=== PATIENT | male | born 1955 ===

== ENCOUNTER 2019-01-25 05:49 | Inpatient (IN) | payer OTHER ==
[~2019-01-25] VITALS: Ht 162.6 cm; Wt 66.7 kg
[2019-01-25] VITALS (12 sets, daily range): BP systolic 13–152; BP diastolic 57–94
[2019-01-25] MEDS ORDERED: Rocuronium Bromide 50mg/5ml Inj IV ONE (06:18)
[2019-01-25] MEDS ORDERED: Vancomycin 1gm vial IVPB ONE (06:35)
[2019-01-25] MEDS ORDERED: FLOMAX0.4 MG ORAL (06:36)
[2019-01-25] MEDS ORDERED: Thrombin 5000 units TOPIC ONE (06:36)
[2019-01-25] MEDS ORDERED: LIPITOR40 MG ORAL (06:36)
[2019-01-25] MEDS ORDERED: GLUCOTROL10 MG ORAL (06:36)
[2019-01-25] MEDS ORDERED: Gelfoam Size TOPIC ONE (06:36)
[2019-01-25] MEDS ORDERED: Bacitracin 50000 Units Vial ONE (06:36)
[2019-01-25] MEDS ORDERED: GLUCOPHAGE850 MG ORAL (06:36)
[2019-01-25] MEDS ORDERED: ZESTRIL20 MG ORAL (06:36)
[2019-01-25] MEDS ORDERED: Bupivacaine w/Epi 0.5% 30ml Vial INJ ONE (06:36)
[2019-01-25] MEDS ORDERED: ASPIR 8181 MG ORAL (06:36)
[2019-01-25] MEDS ORDERED: fentaNYL 100 mcg/2 mL ONE (06:36)
[2019-01-25] MEDS ORDERED: NORVASC10 MG ORAL (06:36)
[2019-01-25] MEDS ORDERED: Ketamine 500mg Inj ONE (06:37)
[2019-01-25] MEDS ORDERED: LR 1000ml 1,000 ML IVLG SCH (06:39)
[2019-01-25] MEDS ORDERED: Sodium Chloride 10ml vial INJ ONE (06:40)
[2019-01-25] MEDS ORDERED: Lidocaine 1% MPF 10mg/ml 5ml ONE (06:40)
--- NOTE | 2019-01-25 06:44 | Immediate Post-Op Evaluation ---
Immediate Post-Op Evalulation Immediate Post-Op Evalulation Procedure: L L4-5, L5-S1 Microlaminectomy, Hemilaminotomy Date of Evaluation: Jan 25, 2019 Time of Evaluation: 09:15 IV Fluids: 600 LR Blood Products: 0 Estimated Blood Loss: 50 Urinary Output: 200 Blood Pressure Systolic: 99 Blood Pressure Diastolic: 61 Pulse Rate: 68 Respiratory Rate: 16 O2 Sat by Pulse Oximetry: 99 Temperature (Fahrenheit): 99 Pain Score (1-10): 2 Nausea: No Vomiting: No Complications 0 Patient Status: awake, reacts, patent, extubated, none Hydration Status: adequate Dru Grams Ancef IV Given Within 1 Hr of Incision: Yes Time Given: 07:16 Aakash Saba MD Jan 25, 2019 06:44
[2019-01-25] MEDS ORDERED: LORazepam Inj 2mg/ml 1ml IV PRN (06:45)
[2019-01-25] MEDS ORDERED: HYDROcodone/Acetamin 7.5/325 tab ORAL PRN ×2 (06:45→07:15)
[2019-01-25] MEDS ORDERED: fentaNYL 100 mcg/2 mL IV PRN (06:45)
[2019-01-25] MEDS ORDERED: Atropine Sulfate 0.4mg/ml inj IVP PRN (06:45)
[2019-01-25] MEDS ORDERED: DiphenhydrAMINE 50mg/ml Inj IVP PRN (06:45)
[2019-01-25] MEDS ORDERED: Ketorolac 30mg Inj IV PRN ×2 (06:45)
[2019-01-25] MEDS ORDERED: Acetaminophen (Non formulary) 100 ML IV ONE (06:45)
[2019-01-25] MEDS ORDERED: Metoclopramide 10mg/2ml Inj IVP PRN ×2 (06:45→07:15)
[2019-01-25] MEDS ORDERED: HYDROcodone/Acetamin 5/325 tab ORAL PRN (06:45)
[2019-01-25] MEDS ORDERED: Hydromorphone 0.5mg/0.5ml inj IVP PRN (06:45)
[2019-01-25] MEDS ORDERED: Midazolam 2mg/2ml Inj IVP PRN (06:45)
[2019-01-25] MEDS ORDERED: Meperidine 50mg/ml Inj(FOR RIGORS ONLY) IVP PRN (06:45)
[2019-01-25] MEDS ORDERED: Labetalol 5mg/ml 20ml vial IV PRN (06:45)
[2019-01-25] MEDS ORDERED: oxyCODONE HCL/Acetaminophen 5/325mg ORAL PRN (06:45)
[2019-01-25] MEDS ORDERED: Lidocaine 1% Plain 30 ml INJ ONE (06:58)
[2019-01-25] MEDS ORDERED: ceFAZolin sod 2 GM in D5W 110 ML IVPB ONE (07:00)
[2019-01-25] MEDS ORDERED: NS Irrig 1000ml ONE (07:00)
[2019-01-25] MEDS ORDERED: Propofol 1,000mg/ 100ml btl IV ONE (07:00)
[2019-01-25] MEDS ORDERED: Sterile Water Irrig 1000ml IRRIG ONE (07:00)
[2019-01-25] MEDS ORDERED: LR 1000ml ONE (07:00)
[2019-01-25] MEDS ORDERED: Neostigmine 1mg/ml 10ml Inj ONE (07:00)
--- NOTE | 2019-01-25 07:07 | Brief Operative Note ---
Immediate Post Operative Note Operative Note Chief Complaint: back pain and radiculopathy Pre-op Diagnosis: herniation L45,5S1 Procedure: Left sided microdiscectomy hemilaminotomy foraminotomy of Lumbar 45,5S1 Post-op Diagnosis: same as pre-op Findings: consistent w/pre-op dx studies Surgeon: Britney Fiscal Accounting Clerk: Jayesh Anesthesiologist: Wandy Anesthesia: general Specimen: none Complications: none Condition: stable Fluids: IVF Estimated Blood Loss: minimal Drains: none Implant(s) used?: No Aron Tan MD Jan 25, 2019 07:07
--- NOTE | 2019-01-25 07:07 | Pre-Procedure Note/Attestation ---
Pre-Procedure Note/Attestation Complete Prior to Procedure Planned Procedure: left Procedure Narrative: Left sided microdiscectomy hemilaminotomy foraminotomy of Lumbar 45,5S1 Indications for Procedure Pre-Operative Diagnosis: herniation L45,5S1 Attestation I attest that I discussed the nature of the procedure; its benefits; risks and complications; and alternatives (and the risks and benefits of such alternatives ), prior to the procedure, with the patient (or the patient's legal software support representative). I attest that, if there was a reasonable possibility of needing a blood transfusion, the patient (or the patient's legal software support representative) was given the [facility] standardized written summary, pursuant to the Rey Ting Blood Safety Act ([place] Health and Safety Code # 1645, as amended). I attest that I re-evaluated the patient just prior to the surgery and that there has been no change in the patient's H&P, except as documented below: Aron Tan MD Jan 25, 2019 07:07
[2019-01-25] MEDS ORDERED: Naloxone 0.4mg/ml Inj IVP PRN (07:15)
[2019-01-25] MEDS ORDERED: Morphine Sulfate 4mg/ml Inj (IV USE ONLY) IV PRN ×2 (07:15)
[2019-01-25] MEDS ORDERED: HYDROmorphone 1mg/ml Carpuject IVP PRN (07:15)
[2019-01-25] MEDS ORDERED: Morphine Sulfate 2mg/ml Inj(IV/IM USE ONLY) IV PRN (07:15)
[2019-01-25] MEDS ORDERED: Milk of Magnesia 30ml Ud ORAL PRN (07:15)
[2019-01-25] MEDS ORDERED: Glycopyrrolate 0.2mg/ml 1ml Vial ONE (08:31)
--- NOTE | 2019-01-25 08:42 | Anethesia Preoperative Eval ---
Anesthesia Pre-op PMH/ROS General Date of Evaluation: Jan 25, 2019 Time of Evaluation: 07:01 Anesthesiologist: Wandy ASA Score: ASA 3 Mallampati Score Class I : Soft palate, uvula, fauces, pillars visible Class II: Soft palate, uvula, fauces visible Class III: Soft palate, base of uvula visible Class IV: Only hard plate visible Mallampati Classification: Class II Surgeon: Britney Diagnosis: Back Pain Surgical Procedure: L L4-5, L5-S1 Microlaminectomy, Hemilaminotomy Family History: no anesthesia problems Allergies: Coded Allergies: No Known Allergies (Unverified , 01/23/19) Medications: see eMAR Patient NPO?: Yes NPO Date: Jan 24, 2019 NPO Time: 1999 Past Medical History Cardiovascular: Reports: HTN, other - HL Endocrine: Reports: DM Anesthesia Pre-op Phys. Exam Physician Exam Last Vital Signs Date Time Temp Pulse Resp B/P (MAP) Pulse Ox O2 Delivery O2 Flow Rate FiO2 01/25/19 06:20 97.8 74 20 147/85 (105) 97 01/25/19 06:16 Room Air Constitutional: NAD Neurologic: CN 2-12 intact Cardiovascular: RRR Respiratory: CTA Gastrointestinal: S/NT/ND Airway Exam Mallampati Score: Class II MO: limited ROM: limited Teeth: missing, intact Anesthesia Pre-op A/P Risk Assessment & Plan Assessment: ASA 3 Plan: GA, GlideScope Go, SED Status Change Before Surgery: No Pre-Antibiotics Dru Grams Ancef IV Given Within 1 Hr of Incision: Yes Time Given: 07:16 Aakash Saba MD Jan 25, 2019 08:42
[2019-01-25] MEDS: Docusate 100mg cap ORAL SCH ×2 (09:00→18:15)
--- NOTE | 2019-01-25 10:30 | NUR ---
NURSE NOTES: Patient arrived on unit via hospital bed. Stable. Denies pain or SOB. Patient is on oxygen 3L via NC. Patient oriented to room, call light, and unit. Patient encouraged to use call light for assistance, verbalized understanding. Surgical dressing c/d/i, ice pack in place. Patient's belonging with Sharita. Patient is in bed in locked and lowest position with call light within reach. Will continue to monitor.
[2019-01-25] MEDS ORDERED: Lisinopril 20mg tab ORAL SCH (11:00)
[2019-01-25] MEDS ORDERED: Chloraseptic Spray 20mL Bottle ORAL PRN (12:00)
[2019-01-25] MEDS: NS w/KCl 20mEq 1000ml 1,000 ML IV SCH ×2 (12:52→21:58)
[2019-01-25] MEDS: Dexamethasone 4mg/ml vial IVP SCH ×3 (12:52→23:11)
[2019-01-25 14:00] LABS: ANION GAP 6 mmol/L (5-15); BLOOD UREA NITROGEN 15 mg/dL (7-18); CALCIUM 8.4 MG/DL (8.5-10.1); CARBON DIOXIDE 28 MMOL/L (21-32); CHLORIDE 105 MMOL/L (98-107); CREATININE 0.9 MG/DL (0.55-1.30); POTASSIUM 4.3 MMOL/L (3.5-5.1); SODIUM 139 MMOL/L (136-145)
--- NOTE | 2019-01-25 14:45 | NUR ---
NURSE NOTES: Patient voided. No c/o burning or discomfort at this time.
[2019-01-25] MEDS: ceFAZolin sod 1 GM in D5W 55 ML IV SCH ×2 (15:02→21:58)
[2019-01-25] MEDS: HYDROcodone/Acetamin 7.5/325 tab ORAL PRN ×2 (15:20→18:24)
--- NOTE | 2019-01-25 16:01 | NUR ---
CASE MANAGEMENT:REVIEW 63 YR OLD MALE HERE FOR ELECTIVE SURGERY SI: BACK PAIN AND RADICULOPATHY 97.8 74 20 147/85 97% ON RA GLUCOSE+219 CA-8.4 IS: to surgery: microdiscectomy,HEMILAMINOTOMY,FORAMINOTOMY OF LUMBAR : TO MED/SURG POST OP
[2019-01-25] MEDS: GlipiZIDE 5mg tab ORAL SCH (18:15)
--- NOTE | 2019-01-25 19:17 | NUR ---
HAND-OFF: Report given to Arabella COLUNGA. Patient is stable.
--- NOTE | 2019-01-25 20:15 | General Progress Note ---
Assessment/Plan Assessment/Plan: herniation L45,5S1 Left sided microdiscectomy hemilaminotomy foraminotomy of Lumbar 45,5S1 back pain PLAN 1. incentive spirometry 2. SCD 3. PT evaluation and therapy 4. Hydration 5. Pain management 6. discharge once stable with outpatient follow up Subjective Allergies: Coded Allergies: No Known Allergies (Unverified , 01/23/19) Subjective care noted and reviewed asked to follow up postop Objective Last 24 Hour Vital Signs Date Time Temp Pulse Resp B/P (MAP) Pulse Ox O2 Delivery O2 Flow Rate FiO2 01/25/19 19:56 98.2 94 18 152/94 (113) 98 01/25/19 16:00 97.6 62 22 137/80 (99) 100 01/25/19 12:00 97.1 72 21 124/74 (91) 98 01/25/19 10:05 98.6 66 25 113/68 99 Nasal Cannula 3 01/25/19 10:00 98.6 01/25/19 10:00 98.6 01/25/19 09:50 67 26 111/61 100 Nasal Cannula 3 01/25/19 09:40 62 24 106/62 96 Nasal Cannula 3 01/25/19 09:30 62 21 111/64 98 Simple Mask 6 01/25/19 09:20 61 22 105/62 98 Simple Mask 6 01/25/19 09:15 64 20 103/57 100 Simple Mask 6 01/25/19 09:10 61 16 98/61 100 Simple Mask 6 01/25/19 09:04 99.0 64 14 111/61 100 Simple Mask 6 01/25/19 09:02 68 16 99 01/25/19 06:20 97.8 74 20 147/85 (105) 97 01/25/19 06:16 Room Air Intake and Output 01/24/19 01/25/19 19:00 07:00 # Voids 1 Laboratory Tests 01/25/19 13:15: Sodium Level 139, Potassium Level 4.3, Chloride Level 105, Carbon Dioxide Level 28, Anion Gap 6, Blood Urea Nitrogen 15, Creatinine 0.9, Estimat Glomerular Filtration Rate > 60, Glucose Level 219H, Calcium Level 8.4L Height (Feet): 5 Height (Inches): 4.00 Weight (Pounds): 147 Objective WDWN NAD clear breath sounds bilaterally without rhonchi or wheeze [id number] without MRG NABS nontender no HSM no CCE nonfocal Elliot Polanco MD Jan 25, 2019 20:15
[2019-01-25] MEDS ORDERED: Tamsulosin 0.4mg cap ORAL SCH (21:00)
[2019-01-25] MEDS ORDERED: Atorvastatin 20mg tab ORAL SCH (21:00)
[2019-01-25] MEDS: HYDROcodone/Acetamin 5/325 tab ORAL PRN (21:59)
--- NOTE | 2019-01-25 22:48 | NUR ---
NURSE NOTE: Pt is A/Ox4 with stable VS. Orders reviewed and physical assessment completed. Dr. Polanco was paged at about 2220 due to his hs blood sugar of 360. ordered a high sliding scale for the patient. Call yee is within reach. Will continue to monitor.
[2019-01-25] MEDS: NovoLOG Insulin Flexpen SUBQ SCH (23:11)
[2019-01-26 00:10] VITALS: BP 158/98
[2019-01-26 04:08] VITALS: BP 134/80
[2019-01-26 04:09] VITALS: BP 134/80
[2019-01-26] MEDS: HYDROcodone/Acetamin 5/325 tab ORAL PRN (04:13)
[2019-01-26] MEDS: Dexamethasone 4mg/ml vial IVP SCH (06:39)
[2019-01-26] MEDS: ceFAZolin sod 1 GM in D5W 55 ML IV SCH (06:39)
[2019-01-26] MEDS: NovoLOG Insulin Flexpen SUBQ SCH ×2 (06:40→11:30)
[2019-01-26] MEDS: NS w/KCl 20mEq 1000ml 1,000 ML IV SCH (06:43)
--- NOTE | 2019-01-26 07:04 | NUR ---
HAND-OFF: Report given to
--- NOTE | 2019-01-26 07:30 | NUR ---
NURSE NOTES: Patient is stable. Denies pain or SOB. Patient encouraged to use call light for assistance, verbalized understanding. IVF running as ordered. Plan of care discussed with patient, verbalized understanding. Patient's surgical dressing clean, dry, and intact. Patient is standing at bedside with call light within reach. All safety measures provided. WIll continue to monitor.
[2019-01-26 08:00] VITALS: BP 150/83
[2019-01-26 08:34] VITALS: BP 150/83
[2019-01-26] MEDS: Docusate 100mg cap ORAL SCH (08:34)
[2019-01-26] MEDS: GlipiZIDE 5mg tab ORAL SCH (08:34)
--- NOTE | 2019-01-26 09:10 | 48 Hour Post Anesthesia Eval ---
Post Anesthesia Evaluation Procedure: L L4-5, L5-S1 Microlaminectomy, Hemilaminotomy Date of Evaluation: Jan 26, 2019 Airway: patent Nausea: No Vomiting: No Hydration Status: adequate Cardiopulmonary Status: at baseline Mental Status/LOC: patient returned to baseline Post-Anesthesia Complications: 0 Follow-up care needed: N/A - further care as per primary team Nicole Lang MD Jan 26, 2019 09:10
--- NOTE | 2019-01-26 09:10 | NUR ---
PT EVALUATION NOTE Patient seen for initial evaluation, see complete evaluation for details. Patient educated in back precautions and proper log roll technique for in/OOB. Patient required supervision for bed mobility, transfers and ambulation x 200 ft. Patient demonstrated ability to perform proper log roll technique after instruction. No assistive device required for mobility. Patient will benefit from one more visit of skilled inpatient PT intervention to ensure proper follow through with back precautions and log roll technique. Anticipate discharge home once medically cleared by MD. No DME needs at this time. Addendum: 01/26/19 at 1218 by FABIOLA OSBORNE PT Amended: Links added.
--- NOTE | 2019-01-26 10:15 | Operative Note - Dictated ---
DATE OF OPERATION: 01/25/2019 SURGEON: Aron Tan M.D., Orthopaedic Spine Surgeon. INHALATION THERAPY AIDES TEACHER SURGEON: SILVAI Bills. ANESTHESIOLOGIST: Aakash Saba M.D. ANESTHESIA: General endotracheal anesthesia. PREOPERATIVE DIAGNOSES: 1. Intractable back pain. 2. Intractable leg pain. 3. Worsening radiculopathy. 4. Weakness. 5. Herniated nucleus pulposus, L4-L5 and L5-S1 herniation. 6. Neural foraminal stenosis, L4-L5 and L5-S1. POSTOPERATIVE DIAGNOSES: 1. Intractable back pain. 2. Intractable leg pain. 3. Worsening radiculopathy. 4. Weakness. 5. Herniated nucleus pulposus, L4-L5 and L5-S1 herniation. 6. Neural foraminal stenosis, L4-L5 and L5-S1. PROCEDURES PERFORMED: 1. Left-sided microdiscectomy. 2. L4-L5 and L5-S1 hemilaminotomy, foraminotomy and medial facetectomy. 3. L4-L5 and L5-S1 neural foraminotomy . 4. Use of intraoperative microscope. 5. Supervision and interpretation of intraoperative fluoroscopy. 6. Supervision and interpretation of somatosensory-evoked potential and free running EMG monitoring. ESTIMATED BLOOD LOSS: Less than 100 mL. COMPLICATIONS: None. INDICATIONS FOR THE PROCEDURE: Mele presents for intractable back pain and radiculopathy. The patient tried and failed a prolonged course of conservative management, including but not limited to chiropractic therapy, physical therapy, nonsteroidal anti-inflammatory drugs, medication, ice packs as well as epidural injection. Despite these therapies, the patient still developed recalcitrant pain and elected for definitive management in the form of left-sided microdiscectomy, L4-L5 and L5-S1 hemilaminotomy, foraminotomy and medial facetectomy. We had a long discussion with him regarding definitive surgical treatment options. The patient's MRI demonstrated herniated nucleus pulposus of L4-L5 and an L5-S1 herniation, neural foraminal stenosis, L4-L5 and L5-S1 and as a result, I felt he would benefit from the discectomy as well as neural foraminotomy at this level. We had a long discussion with the patient regarding the risks, alternatives, and benefits of surgery. Our description of the risks included a discussion in person as well as a signed consent which detailed all pertinent risks and the procedure itself. Briefly, our discussion included but was not limited to infection, bleeding, pseudarthrosis, spinal cord injury, neurovascular injury, dural tear, CSF leak, neuropathy, paralysis, permanent weakness/drop foot, paresthesias blindness, palsy and weakness. The patient understood there may be a need for revision surgery or additional procedures. Approach related complications including dysphonia, dysphagia, blindness, permanent vocal cord and neural injury, hematoma, swallowing and breathing difficulty. Medical complications including liver, kidney, shock, and cardiopulmonary failure. Anesthesia complications including , swelling. Damage to the musculature, larynx (voice injury or loss),esophagus (throat), trachea, blood vessels and muscles (muscular sprain) and lungs (pneumothorax) during this surgical procedure. Injury to deeper structures may be temporary or permanent. The patient understood these and elected to proceed. A written and verbal consent was given. We discussed the pros and cons of all the alternatives. We discussed the uncertainties associated with the decision. Afterwards I assessed the patients understanding and explored their preferences. All questions were answered and no guarantees were given. Medical clearance was obtained prior to surgery. OPERATIVE FINDINGS: At L4-L5 at the left side, there is a tear in the posterior longitudinal ligament that is approximately 20 degrees cephalad to caudad. There was a tear noted along the PLL and a herniated nucleus pulposus fragment was probed. The disc itself was mobile and free floating. The disc was spongy in nature the disc itself. Disc was soft and noncalcified. At L5-S1, there is a tear in the posterior longitudinal ligament. This tear led to the posterior fragment of the disc itself. There was a large herniated nucleus pulposus noted, which was mobile and free floating and clearly encroaching on the exiting neural foramina at L5-S1 as well. This disc was mobilized with a Microsect curette and was completely retracted free of the annulus fibrosus and the linear disc itself. The disc itself was spongy, not calcified or degenerated whatsoever. DESCRIPTION OF PROCEDURE: Under the benefit of general endotracheal anesthesia and with the assistance of the entire operative team, the patient was moved from the rfleming onto the operative table in the prone position on a Matt frame. The head was secured and positioned appropriately. Bilateral arms were secured with Gel pads and foam and all bony prominences were padded. The bilateral lower extremity SCD and TONI hose were placed for DVT prophylaxis. A surgical timeout was called which corroborated our planned procedure. Preoperative Antibiotics were administered within 30 minutes of the incision for prophylaxis. Decadron was given for preoperative steroids. Using lateral radiography, the operative levels were delineated. An incision was marked based on our interpretation of lateral radiography and afterwards the body was prepped and draped in the usual sterile manner. The family was notified that we were ready to commence surgery and were called in the waiting room hourly for updates. An incision was based on our lateral fluoroscopic image to center the incision at the L5-S1 interspace. The wound was prepped and draped in the usual sterile fashion. Using a scalpel a midline incision was taken down through the skin and subcutaneous tissues until the overlying hemilamina of L4-L5 and L5-S1 were visualized. Next, using meticulous hemostasis, hemilamotomies were dissected and retractors were placed. Using a [employer] Communication dental we confirmed placement at the L4-L5 and L5-S1 interspace. We next turned our attention to our decompression. A standard hemilaminotomy foraminotomy medial facetectomy was performed at each level in standard fashion using a Midas-Fabián type AM8 drill bit, straight and angled curettage, and Kerrison 4 rongeurs until the lateral thecal sac margin and traversing nerve root was visualized. All remainders of the ligamentum flavum and lateral bony margins were resected in total with angled curettage and Kerrison 4 rongeurs until the lateral thecal sac margin and traversing nerve root was visualized and decompressed. We next turned our attention toward our L4-L5 and L5-S1 microdiscectomy on the left side. A [place] 4 was used to gently mobilize the thecal sac medially and this was held retracted with a bayonetted nerve root retractor. It was at this point that we noted a large broad-based disc protrusion with encroachment dorsally on the thecal sac neural foraminal contents. A bayonet and nerve root retractor was then placed carefully to retract the thecal sac and a discectomy was performed using a combination of a long handled 15 blade scalpel, downgoing and straight pituitaries and downgoing curettage. Afterward the disc space was irrigated twice with 20 mL of antibiotic-impregnated saline. All loose and free-floating disc fragments were carefully resected with a narrow pituitary. Having been satisfied with our decompression after our discectomy of all neural elements we next turned our attention to our neural foraminoplasty/foraminotomy. This was performed through with a combination of kerrison rongeurs and pituitaries. Afterwards hemostasis was obtained with 60 mL of antibiotic-impregnated saline followed by FloSeal and Gelfoam. After sponge and needle count were found to be correct, next we turned our attention to closure. Closure consisted of 1-0 Vicryl in standard interrupted fashion. Zosyn was placed deep to the fascia and superficial to the fascia for Antibiotic prophylaxis. Skin closure was performed with 2-0 Vicryl in interrupted fashion followed by a running Monocryl for the skin. Final dressings consisted of Dermabond for the superficial skin, Telfa and Tegaderm. The patient tolerated the procedure well. The patient was extubated after the conclusion of surgery without incident. We discussed the findings of the surgery with the family upon completion of the case. At this point, the patient will be transferred to the spine floor for further observation. Aron Tan M.D. DR: KEVIN JOB#: [id number] CC: NICO
--- NOTE | 2019-01-26 11:30 | NUR ---
NURSE NOTES: PATIENT DISCHARGED ORDERED. STABLE. DENIES PAIN OR SOB. PATIENT AND PATIENT'S WAS GIVEN THOROUGH DISCHARGE INSTRUCTIONS BY RN, VERBALIZED UNDERSTANDING. PATIENT HAS PRESCRIPTION AND VERBALIZED THAT SON WILL FILL MEDICATIONS. PATIENT HAS ALL BELONGINGS. SURGICAL DRESSING CLEAN, DRY, AND INTACT. PATIENT WAS GIVEN THOROUGH DISCHARGE INSTRUCTIONS BY DR. WEAVER. PATIENT ASSISTED DOWNSTAIRS BY RN WITHOUT INCIDENT. NO IV ACCESS. SKIN IS CLEAN, DRY, AND INTACT.
[2019-01-26] MEDS ORDERED: Aspirin Baby 81mg ORAL SCH (12:00)
--- NOTE | 2019-01-26 14:56 | General Progress Note ---
Assessment/Plan Assessment/Plan: herniation L45,5S1 Left sided microdiscectomy hemilaminotomy foraminotomy of Lumbar 45,5S1 back pain PLAN 1. incentive spirometry 2. SCD 3. PT evaluation and therapy 4. Hydration 5. Pain management 6. discharge home; rx given Subjective Allergies: Coded Allergies: No Known Allergies (Unverified , 01/23/19) Subjective care noted and reviewed stable for dc seen earlier Objective Last 24 Hour Vital Signs Date Time Temp Pulse Resp B/P (MAP) Pulse Ox O2 Delivery O2 Flow Rate FiO2 01/26/19 09:00 Room Air 01/26/19 08:34 94 150/83 01/26/19 08:00 97.4 94 20 150/83 (105) 97 01/26/19 04:09 97.7 75 18 134/80 (98) 97 01/26/19 00:10 98.0 99 18 158/98 (118) 97 01/25/19 21:00 Room Air 01/25/19 19:56 98.2 94 18 152/94 (113) 98 01/25/19 16:00 97.6 62 22 137/80 (99) 100 Intake and Output 01/25/19 01/26/19 19:00 07:00 Intake Total 1500 ml 1100 ml Output Total 250 ml Balance 1250 ml 1100 ml Intake IV Total 1500 ml 1100 ml Output Urine Total 200 ml Estimated Blood Loss 50 ml Height (Feet): 5 Height (Inches): 4.00 Weight (Pounds): 147 Objective WDWN NAD clear breath sounds bilaterally without rhonchi or wheeze [id number] without MRG NABS nontender no HSM no CCE nonfocal Elliot Polanco MD Jan 26, 2019 14:56
--- NOTE | 2019-01-26 16:30 | Discharge Summary ---
DATE OF ADMISSION: 01/25/2019 DATE OF DISCHARGE: 01/26/2019 PROCEDURE PERFORMED DURING ADMISSION: Left-sided microdiskectomy L4-L5, L5-S1. REASON FOR ADMISSION: Herniation L4-L5, L5-S1. HOSPITAL COURSE/TREATMENT RENDERED: DISCHARGE PHYSICAL EXAM: 1. Patient was ambulating with and without the assistance of physical therapy. 2. Prior to discharge home incision was clean and dry with minimal swelling. 3. Follows commands. 4. Alert and oriented. 5. Moncada discontinued, voiding. 6. Incentive spirometer at bedside. 7. IVF hep locked. MOTOR: Demonstrates expected postoperative bulk and tone. Moves biceps, triceps, and deltoid musculature on command. Moves hip flexors, quadriceps, tibialis anterior, EHL, gastrocsoleus musculature on command as well. TREATMENT RENDERED: 1. Daily nursing care. 2. Physical Therapy. 3. Occupational Therapy. 4. Intravenous medications. 5. Oral medications. 6. Daily postoperative examinations by Spine surgery team. CONDITION OF PATIENT ON DISCHARGE: The condition on discharge is stable for discharge to home. DISCHARGE INSTRUCTIONS: Our specific instructions relating to physical activity, medications diet and follow-up care are detailed in our standard operative folder and were given to this patient prior to surgery. We will however summarize these briefly as stated below. Regarding physical activity we would like the patient to limit their flexion, extension and rotation. We also require a limitation on their bending lifting and twisting. All medication has been called in prior to surgery to their pharmacy of choice. They can resume their regular diet once tolerated. We would like them to shower and limit soaking the wound in a tub/Jacuzzi/the ocean for a period of one month or until the incision is completely healed. We will have them follow up in our office in three weeks time for their regularly scheduled appointment. They understand to call our office tomorrow to schedule the time for their three week followup appointment. The patient will notify us should they experience any increase in the severity of pain, redness/swelling/ or drainage from their incision. Aron Tan M.D. DR: DAHLIA JOB#: [id number] CC:
--- NOTE | 2019-01-29 16:24 | Diagnostic Imaging Report ---
INDICATION: Pain, intraoperative TECHNIQUE: Intraoperative imaging Fluoroscopy time: 2.6 seconds Total dose: 0.76226 mGym2 Total number of images: COMPARISON: None FINDINGS: Single intraoperative image demonstrates a surgical tool posterior what is presumably the L5-S1 disc IMPRESSION: Intraoperative imaging, as described
== END 2019-01-26 11:30 | disposition home or self-care (01) | DRG 520 ==
LOC: SDSOVERFLO 05:49 → 3E 10:18
PROC: 0SB20ZZ Excision of Lumbar Vertebral Disc, Open Approach (ICD-10-PCS; principal; 2019-01-25 07:00)
PROC: 01NB0ZZ Release Lumbar Nerve, Open Approach (ICD-10-PCS; principal; 2019-01-25 07:00)
DX: M51.16 Intervertebral disc disorders with radiculopathy, lumbar region (principal); I10 Essential (primary) hypertension; N40.0 Benign prostatic hyperplasia without lower urinary tract symptoms; E78.00 Pure hypercholesterolemia, unspecified; E11.9 Type 2 diabetes mellitus without complications; M48.061 Spinal stenosis, lumbar region without neurogenic claudication; W19.XXXS Unspecified fall, sequela; Z79.84 Long term (current) use of oral hypoglycemic drugs; Z79.82 Long term (current) use of aspirin
CPT/HCPCS: 36415; 72020; 76000; 80048; 82962; 86850; 86900; 86901; 87081; 94003; 94150; J1815; J2405; J2710